=== PATIENT | female | born 1970 | race African-American/Black ===

== ENCOUNTER 2019-09-09 10:25 | Inpatient (IN) | payer BC ==
[~2019-09-09] VITALS: Ht 172.7 cm; Wt 119.2 kg
[~2019-09-09 10:25] MED LIST: ACETAMINOPHEN325 M1; AFRIN120 MG; ANUSOL1 EACH RE; ASPIRIN325; COUMADIN 10MG T10 M1 PO; COUMADIN 2.5MG2.5 M1 PO; ENOXAPARIN30 MG/0.3 SQ; EX-LAX MAXIMUM25 MG PO; FISH OIL 1,2001 EAC3 PO; JANTOVEN7.5 MG PO; LOVENOX SC; LOVENOX SQ; MAGNES PO; MEDROL4 MG; MIRALAX255 GM PO; MYLANTA TABLET1 TA1 PO; NORCO 7.5-3251 EACH; PRENATAL COMPL1 EACH PO; PRILOSEC 20 MG20 MG PO; TUMS CHEWA500 MG/11 PO; VITAMIN E400 UNIT PO; ZOFRAN4 MG; [UNRECOGNIZED DRUG - REMARK]
[2019-09-09 10:37] VITALS: BP 155/57
[2019-09-09] MEDS ORDERED: PROTONIX40 M2 PO (10:41)
[2019-09-09 11:21] LABS: ABSOLUTE BASOPHILS 0.1 thou/uL (0.0-0.2); ABSOLUTE EOSINOPHILS 0.1 thou/uL (0.0-0.7); ABSOLUTE LYMPHOCYTES 2.1 thou/uL (0.8-5.3); ABSOLUTE MONOCYTES 0.2 thou/uL (0.0-1.2); ABSOLUTE NEUTROPHILS 5.5 thou/uL (1.6-8.1); BASOPHILS 1.2 %; EOSINOPHILS 1.4 %; HEMATOCRIT 38.4 % (37.0-47.0); HEMOGLOBIN 12.6 gm/dL (12.0-15.0); LYMPHOCYTES 25.9 %; MCH 28.3 pg (26.0-34.0); MCHC 32.8 g/dL (28.0-37.0); MCV 86.2 fL (80.0-100.0); MPV 8.2 fl. (7.2-11.1); NUCLEATED RBCS 0 /100WBC; PLATELET COUNT* 211 thou/uL (150-400); POLYS 68.5 %; RBC 4.45 mil/uL (4.20-5.00); RDW-CV 13.7 % (10.5-14.5); WBC 8.1 thou/uL (4.0-11.0)
[2019-09-09 11:30] LABS: CALCIUM 8.5 mg/dL (8.5-10.1); CREATININE 0.6 mg/dL (0.6-1.3)
[2019-09-09 11:41] LABS: ALBUMIN 3.5 g/dL (3.4-5.0); APTT 26.1 Seconds (25.0-31.3); PROTIME 10.7 Seconds (9.20-11.50); TOTAL BILIRUBIN 0.2 mg/dL (<0.1-1.0); TOTAL PROTEIN 7.9 g/dL (6.4-8.2)
--- NOTE | 2019-09-09 15:31 | EKG ---
[place] [address] ELECTROCARDIOGRAM REPORT Name: NERYLEON GUZMAN Room: [place] [address] ADM IN ..#: [id number] Admission: 09/09/19 Attend Phys: Janes Vazquez Discharge: Date of : 70 Date of Service: 09/09/19 1115 Report #: [id number] THIS REPORT FOR: //name// [facility] ED Test Date: 2019-09-09 Test Time: 11:15:13 Pat Name: LEON VERNON Department: Room: [facility] Gender: F Security Assistant: LOUIE : 1970 Requested By: Maya Roe Order Number: [id number] MD: Melquiades Lucero Measurements Intervals [place] Rate: 67 P: 35 NH: 148 QRS: 28 QRSD: 100 T: 7 QT: 401 QTc: 424 Interpretive Statements Sinus arrhythmia Left atrial enlargement septal infarct, old Compared to ECG 04/23/2012 08:48:37 Atrial abnormality now present Myocardial infarct finding now present Sinus bradycardia no longer present Early repolarization no longer present Electronically Signed On 09-09-2019 15:30:11 DOCUMENT MANAGEMENT SPECIALIST by Melquiades Lucero [email or web address] <ELECTRONICALLY SIGNED> By: Melquiades Lucero MD, FACC 09/09/19 1530 1115 1115 Melquiades Lucero MD, FAC /EPI
[2019-09-09 18:50] VITALS: BP 137/74
[2019-09-09 20:20] VITALS: BP 115/40
[2019-09-10] VITALS: BP 104/49
[2019-09-10 04:30] VITALS: BP 103/45
[2019-09-10 08:00] VITALS: BP 117/60
[2019-09-10 11:54] VITALS: BP 132/44
--- NOTE | 2019-09-10 15:48 | 2DMMODE ---
[place] [address] 2 D/M-MODE ECHOCARDIOGRAM Name: LEON VERNONN Room: [address] IN [facility]#: [id number] Admission: 09/09/19 Attend Phys: Janes Vazquez Discharge: Date of : 70 Date of Service: 09/10/19 1547 Report #: [id number] THIS REPORT FOR: cc: Steven Dumas MD, Tuongvan T. MD [place], Michael J. MD [facility] ~ APPROVED REPORT Study performed: 09/10/2019 11:35:57 EXAM: Comprehensive 2D, Doppler, and color-flow Echocardiogram Patient Location: In-Patient Room #: [facility] Status: routine BSA: 2.24 HR: 62 bpm BP: 117/60 mmHg Rhythm: NSR Other Information Study Quality: Good Indications Pulmonary Embolism 2D Dimensions IVSd: 9.66 (7-11mm) LVOT Diam: 19.51 (18-24mm) LVDd: 46.77 mm PWd: 8.71 (7-11mm) Ascending Ao: 24.73 (22-36mm) LVDs: 24.82 (25-40mm) Aortic Root: 25.56 mm Volumes Left Atrial Volume (Systole) LA ESV Index: 27.40 mL/m2 Aortic Valve AoV Peak Delfino.: 1.44 m/s AO Peak Gr.: 8.25 mmHg LVOT Max P.13 mmHg AO Mean Gr.: 4.41 mmHg LVOT Mean P.29 mmHg LVOT Max V: 1.24 m/s AO V2 VTI: 28.90 cm LVOT Mean V: 0.85 m/s SIMA (VTI): 3.10 cm2 LVOT V1 VTI: 29.94 [place] [address] 2 D/M-MODE ECHOCARDIOGRAM Name: LEON VERNON Room: [address] IN [facility]#: [id number] Admission: 09/09/19 Attend Phys: Janes Vazquez Discharge: Date of : 70 Date of Service: 09/10/19 1547 Report #: [id number] Mitral Valve E/A Ratio: 1.67 MV Decel. Time: 205.12 ms MV E Max Delfino.: 0.85 m/s MV PHT: 59.49 ms MVA (PHT): 3.70 cm2 TDI E/Lateral E': 5.67 E/Medial E': 6.07 Medial E' Delfino.: 0.14 m/s Lateral E' Delfino.: 0.15 m/s Pulmonary Valve PV Peak Delfino.: 0.94 m/s PV Peak Gr.: 3.52 mmHg Tricuspid Valve RAP Estimate: 5.00 mmHg TR Peak Gr.: 27.02 mmHg RVSP: 32.00 mmHg PA Pressure: 32.00 mmHg Left Ventricle The left ventricle is normal size. There is normal LV segmental wall motion. There is normal left ventricular wall thickness. Left ventricular systolic function is normal. LVEF is 65-70%. The left ventricular diastolic function is normal. Right Ventricle The right ventricle is normal size. The right ventricular systolic function is normal. Atria The left atrium size is normal. The right atrium size is normal. Aortic Valve The aortic valve is normal in structure. No aortic regurgitation is present. There is no aortic valvular stenosis. Mitral Valve The mitral valve is normal in structure. Mild mitral regurgitation. No evidence of mitral valve stenosis. Tricuspid Valve The tricuspid valve is normal in structure. Trace tricuspid regurgitation. The RVSP is 30-[place] [address] 2 D/M-MODE ECHOCARDIOGRAM Name: LEON VERNON Room: [address] IN [facility]#: [id number] Admission: 09/09/19 Attend Phys: Janes Vazquez Discharge: Date of : 70 Date of Service: 09/10/19 1547 Report #: [id number] Pulmonic Valve The pulmonary valve is normal in structure. There is no pulmonic valvular regurgitation. Great Vessels The aortic root is normal in size. IVC is normal in size and collapses >50% with inspiration. Pericardium There is no pericardial effusion. <Conclusion> The left ventricle is normal size. There is normal left ventricular wall thickness. Left ventricular systolic function is normal. LVEF is 65-70%. The left ventricular diastolic function is normal. Mild mitral regurgitation. Trace tricuspid regurgitation. The RVSP is 30-35 mmHg. IVC is normal in size and collapses >50% with inspiration. <ELECTRONICALLY SIGNED> By: Yazan Pryor MD, FACC 09/10/19 1547 1547 1547 Yazan Pryor MD, FACC /INF
[2019-09-11] VITALS (7 sets, daily range): BP systolic 112–156; BP diastolic 44–82
[2019-09-11] MEDS ORDERED: ELIQUIS5 MG PO ×2 (15:30→15:32)
[2019-09-12] VITALS: BP 136/55
[2019-09-12 04:00] VITALS: BP 141/65
[2019-09-12 08:00] VITALS: BP 131/56
[2019-09-12] MEDS ORDERED: NORCO 5-325 TA1 EAC1 PO (11:49)
[2019-09-12] MEDS ORDERED: ALEVE220 MG PO (12:17)
[2019-09-12] MEDS ORDERED: ACETAMINOPHEN500 M1 PO (12:18)
== END 2019-09-12 14:03 | disposition home or self-care (01) | DRG 176 ==
LOC: M.ERS 10:25 → M.TBA-ER 14:30 → M.2W 14:30
PROVIDERS: Nurse Practitioner Family; ADMIT Internal Medicine
DX: I26.99 Other pulmonary embolism without acute cor pulmonale (principal); Z86.711 Personal history of pulmonary embolism; Z86.718 Personal history of other venous thrombosis and embolism; Z90.49 Acquired absence of other specified parts of digestive tract; Z79.899 Other long term (current) drug therapy; Z79.01 Long term (current) use of anticoagulants; Z91.048 Other nonmedicinal substance allergy status; Z98.891 History of uterine scar from previous surgery